=== PATIENT | female | born 1975 ===

== ENCOUNTER 2023-06-15 20:49 | Inpatient (IN) | payer OTHER, SELFPAY ==
[2023-06-15 23:38] VITALS: BMI 40.0
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
[2023-06-16 09:20] LABS: Estimated Average Glucose 134 mg/dL; Hemoglobin A1c % 6.3 % (<6.0)
[2023-06-16 09:23] LABS: Alanine Aminotransferase 18 U/L (0-31); Albumin Level 4.5 g/dL (3.5-5.0); Alkaline Phosphatase 101 U/L (39-117); Anion Gap 17 (12-20); Aspartate Amino Transferase 18 U/L (5-31); Bilirubin Total 0.5 mg/dL (0.0-1.0); Blood Urea Nitrogen 17 mg/dL (9-16); Calcium 10.5 mg/dL (8.4-10.2); Carbon Dioxide 23 mmol/L (22-29); Chloride 103 mmol/L (96-108); Cholesterol 199 mg/dL (<200); Creatinine Clr Calc Pharmacy 102.3; Estimated Glomerular Filt Rate > 60; Glucose Fasting 124 mg/dL (60-99); HDL Cholesterol 36 mg/dL (>40); LDL Cholesterol Calculated 132 mg/dL (<100); Potassium 4.4 mmol/L (3.3-5.1); Sodium 139 mmol/L (135-145); Total Protein 8.9 g/dL (6.5-8.0); Triglycerides 156 mg/dL (<150)
[2023-06-16 09:37] LABS: Thyroid Stimulating Hormone 2.11 uIU/mL (0.32-4.0)
[2023-06-16 09:39] LABS: Vitamin B12 1429 pg/mL (200-900)
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
[2023-06-16 16:55] VITALS: BP 110/67; PULSE 101; RESP 16; TEMP 37; O2SAT 94
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
[2023-06-16] MEDS: OLANZapine 10 MG TABLET PO (21:35)
[2023-06-16] MEDS: traZODone HCL 50 MG TABLET PO (21:35)
[2023-06-17 08:05] VITALS: BP 120/79; PULSE 80; RESP 16; TEMP 2.5; TEMP 36.5; O2SAT 95
[2023-06-17] MEDS: FLUoxetine HCl 20 MG CAPSULE PO (08:53)
[2023-06-17] MEDS: metFORMIN HCl 500 MG TABLET PO (08:53)
--- NOTE | 2023-06-17 10:53 | HO.PSYCHPN ---
Subjective Subjective Date of Service: 06/17/23 Reason For Visit: Crisis Subjective Notes: Conditional Voluntary Healthcare Proxy: No Guardianship: No Medical Problems Affecting Mental Status: No Interim History: Pt seen, reviewed in team. Denies SI/HI Appears guarded at times, possibly overwhelmed with the new environment. Medication Compliance: Yes Side effects from medications: No Attending Groups: No Review of Systems Acute medical concerns: No Medical Review of Systems: unchanged Review of Systems Review of Systems Yes all other systems are reviewed and are negative Mental Status Exam Mental Status Exam Patient Appearance: Appropriate Patient Orientation: Person, Place and Situation Level of Consciousness: Alert Patient Behavior: Talkative and Good Eye Contact Mood Description: Flat Affect Description: Flat Patient Cognition Impaired: No Ability to Follow Directions: Fair Speech Pattern: Spontaneous Speech Memory Description: Episodic Impaired Hallucinations: None Thought Process: Rumination Thought Content: positive for Perseveration and positive for Suicidal Ideation Depressive Symptoms: Low Self Esteem Judgement: Fair Diagnostics Vital Signs (24Hr): Vital Signs - 24 hr 06/16/23 16:55 Temperature 98.6 F Pulse Rate 101 H Respiratory Rate 16 Blood Pressure 110/67 Pulse Oximetry 94 Oxygen Delivery Method Room Air BMI result Body Mass Index 40.0 Labs 06/16/23 08:38 Labs: Laboratory Results - last 48 hr 06/16/23 08:38 Sodium 139 Potassium 4.4 Chloride 103 Carbon Dioxide 23 Anion Gap 17 BUN 17 H Creatinine 0.84 Estim Creat Clear Calc 102.3 Estimated GFR > 60 Fasting Glucose 124 H Estimat Average Glucose 134 Hemoglobin A1c % 6.3 H Calcium 10.5 H Total Bilirubin 0.5 AST 18 ALT 18 Alkaline Phosphatase 101 Total Protein 8.9 H Albumin 4.5 Triglycerides 156 H Cholesterol 199 LDL Cholesterol, Calc 132 H HDL Cholesterol 36 L Vitamin B12 1429 H TSH 2.11 Medications Medications Current Medications Acetaminophen (Acetaminophen 325 Mg Tablet) 650 mg PO Q6H PRN PRN Reason: Headache/Pain Mild Scale (1-3) Al Hydroxide/Mg Hydroxide (Magnesium Hydrox/Alum Hydrox 30 Ml Oral.Susp) 30 ml PO Q6H PRN PRN Reason: Heartburn/Nausea Fluoxetine HCl (Fluoxetine Hcl 20 Mg Capsule) 20 mg PO DAILY [facility] Last Admin: 06/17/23 08:53 Dose: 20 mg Hydroxyzine HCl (Hydroxyzine Hcl 25 Mg Tablet) 25 mg PO Q8H PRN PRN Reason: Anxiety Magnesium Hydroxide (Milk Of Magnesia 30 Ml Oral.Susp) 30 ml PO DAILY PRN PRN Reason: Constipation Metformin HCl (Metformin Hcl 500 Mg Tablet) 500 mg PO DAILY [facility] Last Admin: 06/17/23 08:53 Dose: 500 mg Olanzapine (Olanzapine 10 Mg Tablet) 10 mg PO BEDTIME [facility] Last Admin: 06/16/23 21:35 Dose: 10 mg Trazodone HCl (Trazodone Hcl 50 Mg Tablet) 50 mg PO BEDTIME [facility] Last Admin: 06/16/23 21:35 Dose: 50 mg Allergies Allergies Allergy/AdvReac Type Severity Reaction Status Date / Time No Known Allergies Allergy Verified 06/15/23 23:31 Assessment & Plan Assessment & Plan (1) Bipolar disorder with psychotic features: Status: Acute Code(s): F31.9 - Bipolar disorder, unspecified Plan 48 yo female, hx of bipolar disorder with psychosis, admitted after an argument with partner where pt expressed HI, SI. Plan: Re-establish meds: Prozac 20 mg daily Zyprexa 10 mg HS Hydroxyzine 25 mg tid prn Trazodone 50 mg hs Metformin 500 mg am. 06/17/23 Continue current regime. Continue to monitor for symptoms. Reason for continued inpatient stay Substantial Risk for: harm to self and rapid decompensation Time Spent With Patient Time: Total time managing care of this patient today ____ minutes.
[2023-06-17 18:00] VITALS: BP 125/67; PULSE 91; RESP 16; TEMP 36.1; O2SAT 97
[2023-06-17] MEDS: OLANZapine 10 MG TABLET PO (20:40)
[2023-06-17] MEDS: traZODone HCL 50 MG TABLET PO (20:40)
[2023-06-18 08:41] VITALS: BP 116/77; PULSE 96; RESP 12; TEMP 36.6; O2SAT 96
[2023-06-18] MEDS: FLUoxetine HCl 20 MG CAPSULE PO (08:44)
[2023-06-18] MEDS: metFORMIN HCl 500 MG TABLET PO (08:44)
--- NOTE | 2023-06-18 13:39 | P.PNPSI_ITS ---
Subjective Subjective Date of Service: 06/18/23 Reason For Visit: Crisis Subjective Notes: Conditional Voluntary Interim History: Reviewed with . used electromechanical equipment tester services. social service technician (Cece) present. Pt reports feeling okay today; pt stated, I don't need anything. I haven't felt suicidal in a few days . calm, cooperative. denies SI/HI/VH/AH. Medication Compliance: Yes Side effects from medications: No Attending Groups: No Review of Systems Constitutional: Reports as per HPI Eyes: Reports as per HPI Reports as per HPI Cardiovascular: Reports as per HPI Respiratory: Reports as per HPI Gastrointestinal: Reports as per HPI Genitourinary: Reports as per HPI Musculoskeletal: Reports as per HPI Skin/Breast: Reports as per HPI Reports as per HPI Psychiatric: Reports as per HPI Endocrine: Reports as per HPI Hematologic/Lymphatic: Reports as per HPI Allergic/Immunologic: Reports as per HPI Mental Status Exam Mental Status Exam Patient Appearance: Well Grooomed Patient Orientation: Person, Place, Time and Situation Level of Consciousness: Awake and Alert Patient Behavior: Cooperative Mood Description: Calm Speech Pattern: Clear Hallucinations: None Delusions: Not Present Thought Process: Intact Thought Content: positive for Intact Diagnostics Vital Signs (24Hr): Vital Signs - 24 hr 06/17/23 18:00 06/18/23 08:41 Temperature 97 F 97.8 F Pulse Rate 91 96 Respiratory Rate 16 12 Blood Pressure 125/67 116/77 Pulse Oximetry 97 96 Oxygen Delivery Method Room Air Room Air BMI result Body Mass Index 40.0 Labs 06/16/23 08:38 Medications Medications Current Medications Acetaminophen (Acetaminophen 325 Mg Tablet) 650 mg PO Q6H PRN PRN Reason: Headache/Pain Mild Scale (1-3) Al Hydroxide/Mg Hydroxide (Magnesium Hydrox/Alum Hydrox 30 Ml Oral.Susp) 30 ml PO Q6H PRN PRN Reason: Heartburn/Nausea Fluoxetine HCl (Fluoxetine Hcl 20 Mg Capsule) 20 mg PO DAILY [facility] Last Admin: 06/18/23 08:44 Dose: 20 mg Hydroxyzine HCl (Hydroxyzine Hcl 25 Mg Tablet) 25 mg PO Q8H PRN PRN Reason: Anxiety Magnesium Hydroxide (Milk Of Magnesia 30 Ml Oral.Susp) 30 ml PO DAILY PRN PRN Reason: Constipation Metformin HCl (Metformin Hcl 500 Mg Tablet) 500 mg PO DAILY [facility] Last Admin: 01/12/24 08:44 Dose: 500 mg Olanzapine (Olanzapine 10 Mg Tablet) 10 mg PO BEDTIME [facility] Last Admin: 06/17/23 20:40 Dose: 10 mg Trazodone HCl (Trazodone Hcl 50 Mg Tablet) 50 mg PO BEDTIME [facility] Last Admin: 06/17/23 20:40 Dose: 50 mg Allergies Allergies Allergy/AdvReac Type Severity Reaction Status Date / Time No Known Allergies Allergy Verified 06/15/23 23:31 Assessment & Plan Assessment & Plan (1) Bipolar disorder with psychotic features: Status: Acute Code(s): F31.9 - Bipolar disorder, unspecified Plan 48 yo female, hx of bipolar disorder with psychosis, admitted after an argument with partner where pt expressed HI, SI. Plan: Re-establish meds: Prozac 20 mg daily Zyprexa 10 mg HS Hydroxyzine 25 mg tid prn Trazodone 50 mg hs Metformin 500 mg am. 06/17/23 Continue current regime. Continue to monitor for symptoms. 06/18: used electromechanical equipment tester services. social service technician (Cece) present. Pt reports feeling okay today; pt stated, I don't need anything. I haven't felt suicidal in a few days . calm, cooperative. denies SI/HI/VH/AH. continue current tx plan. Reason for continued inpatient stay Substantial Risk for: med/psych decompensation Time Spent With Patient Time: Total time managing care of this patient today ____ minutes.
--- NOTE | 2023-06-18 13:44 | PC.NURSE ---
Left messages for bandage wrapping machine operator services for [facility] bandage wrapping machine operator for groups. Awaiting return call.
[2023-06-18 21:00] VITALS: BP 120/66; PULSE 88; RESP 16; TEMP 36.6; O2SAT 97
[2023-06-18] MEDS: traZODone HCL 50 MG TABLET PO (21:00)
[2023-06-18] MEDS: OLANZapine 10 MG TABLET PO (21:00)
[2023-06-19 08:00] VITALS: BP 116/71; PULSE 90; RESP 18; TEMP 36.3; O2SAT 96
[2023-06-19] MEDS: FLUoxetine HCl 20 MG CAPSULE PO (08:38)
[2023-06-19] MEDS: metFORMIN HCl 500 MG TABLET PO (08:38)
--- NOTE | 2023-06-19 10:31 | HO.PSYCHPN ---
Subjective Subjective Date of Service: 06/19/23 Reason For Visit: Crisis Subjective Notes: Conditional Voluntary Interim History: Patient was seen and discussed in rounds today. Records and plans were reviewed. Noteman service was not located. The report state that she continues to be guarded. She is medication and meal compliant. She is visible, cooperative and pleasant. No changes were made today Review of Systems Review of Systems Yes all other systems are reviewed and are negative Mental Status Exam Mental Status Exam Narrative: Could not be assessed formally. Appears to be stable and in fair spirits. No dangerous behaviors. Diagnostics Vital Signs (24Hr): Vital Signs - 24 hr 06/18/23 21:00 06/19/23 08:00 Temperature 97.8 F 97.3 F Pulse Rate 88 90 Respiratory Rate 16 18 Blood Pressure 120/66 116/71 Pulse Oximetry 97 96 Oxygen Delivery Method Room Air Room Air BMI result Body Mass Index 40.0 Labs 06/16/23 08:38 Medications Medications Current Medications Acetaminophen (Acetaminophen 325 Mg Tablet) 650 mg PO Q6H PRN PRN Reason: Headache/Pain Mild Scale (1-3) Al Hydroxide/Mg Hydroxide (Magnesium Hydrox/Alum Hydrox 30 Ml Oral.Susp) 30 ml PO Q6H PRN PRN Reason: Heartburn/Nausea Fluoxetine HCl (Fluoxetine Hcl 20 Mg Capsule) 20 mg PO DAILY [facility] Last Admin: 06/19/23 08:38 Dose: 20 mg Hydroxyzine HCl (Hydroxyzine Hcl 25 Mg Tablet) 25 mg PO Q8H PRN PRN Reason: Anxiety Magnesium Hydroxide (Milk Of Magnesia 30 Ml Oral.Susp) 30 ml PO DAILY PRN PRN Reason: Constipation Metformin HCl (Metformin Hcl 500 Mg Tablet) 500 mg PO DAILY [facility] Last Admin: 06/19/23 08:38 Dose: 500 mg Olanzapine (Olanzapine 10 Mg Tablet) 10 mg PO BEDTIME [facility] Last Admin: 06/18/23 21:00 Dose: 10 mg Trazodone HCl (Trazodone Hcl 50 Mg Tablet) 50 mg PO BEDTIME [facility] Last Admin: 06/18/23 21:00 Dose: 50 mg Allergies Allergies Allergy/AdvReac Type Severity Reaction Status Date / Time No Known Allergies Allergy Verified 06/15/23 23:31 Assessment & Plan Assessment & Plan (1) Bipolar disorder with psychotic features: Status: Acute Code(s): F31.9 - Bipolar disorder, unspecified Plan 48 yo female, hx of bipolar disorder with psychosis, admitted after an argument with partner where pt expressed HI, SI. Plan: Re-establish meds: Prozac 20 mg daily Zyprexa 10 mg HS Hydroxyzine 25 mg tid prn Trazodone 50 mg hs Metformin 500 mg am. 06/17/23 Continue current regime. Continue to monitor for symptoms. 06/18: used artificial limb maker services. social work case manager (Cece) present. Pt reports feeling okay today; pt stated, I don't need anything. I haven't felt suicidal in a few days . calm, cooperative. denies SI/HI/VH/AH. continue current tx plan. 06/19/23: Continue current regimen and plans Reason for continued inpatient stay Substantial Risk for: med/psych decompensation Time Spent With Patient Time: Total time managing care of this patient today ____ minutes.
[2023-06-19] MEDS: OLANZapine 10 MG TABLET PO (20:35)
[2023-06-19] MEDS: traZODone HCL 50 MG TABLET PO (20:35)
[2023-06-19 22:31] VITALS: BP 113/71; PULSE 88; RESP 16; TEMP 36.4; O2SAT 96
[2023-06-20 08:00] VITALS: BP 137/84; PULSE 88; TEMP 36.3; O2SAT 97
[2023-06-20] MEDS: FLUoxetine HCl 20 MG CAPSULE PO (09:58)
[2023-06-20] MEDS: metFORMIN HCl 500 MG TABLET PO (09:58)
--- NOTE | 2023-06-20 10:06 | HO.PSYCHPN ---
Subjective Subjective Date of Service: 06/20/23 Reason For Visit: Crisis Subjective Notes: Conditional Voluntary Interim History: Patient was seen and discussed in rounds today. Records and plans were reviewed. An correctional sergeant was used today with the nurse present. She has been stable and is doing better. She is calm, cooperative and compliant. Eating and sleeping adequately. She is out and visible and communication makes it difficult. No complaints or side effects. No changes were made today Review of Systems Review of Systems Yes all other systems are reviewed and are negative Mental Status Exam Mental Status Exam Narrative: In today's visit she is alert, oriented and pleasant. Normal speech. Moderate eye contact. Affect is constricted. No SI. Cognitively is grossly intact. Judgment is intact Diagnostics Vital Signs (24Hr): Vital Signs - 24 hr 06/19/23 22:31 06/20/23 08:00 Temperature 97.6 F 97.4 F Pulse Rate 88 88 Respiratory Rate 16 Blood Pressure 113/71 137/84 Pulse Oximetry 96 97 Oxygen Delivery Method Room Air Room Air BMI result Body Mass Index 40.0 Labs 06/16/23 08:38 Medications Medications Current Medications Acetaminophen (Acetaminophen 325 Mg Tablet) 650 mg PO Q6H PRN PRN Reason: Headache/Pain Mild Scale (1-3) Al Hydroxide/Mg Hydroxide (Magnesium Hydrox/Alum Hydrox 30 Ml Oral.Susp) 30 ml PO Q6H PRN PRN Reason: Heartburn/Nausea Fluoxetine HCl (Fluoxetine Hcl 20 Mg Capsule) 20 mg PO DAILY [facility] Last Admin: 06/20/23 09:58 Dose: 20 mg Hydroxyzine HCl (Hydroxyzine Hcl 25 Mg Tablet) 25 mg PO Q8H PRN PRN Reason: Anxiety Magnesium Hydroxide (Milk Of Magnesia 30 Ml Oral.Susp) 30 ml PO DAILY PRN PRN Reason: Constipation Metformin HCl (Metformin Hcl 500 Mg Tablet) 500 mg PO DAILY [facility] Last Admin: 06/20/23 09:58 Dose: 500 mg Olanzapine (Olanzapine 10 Mg Tablet) 10 mg PO BEDTIME [facility] Last Admin: 06/19/23 20:35 Dose: 10 mg Trazodone HCl (Trazodone Hcl 50 Mg Tablet) 50 mg PO BEDTIME [facility] Last Admin: 06/19/23 20:35 Dose: 50 mg Allergies Allergies Allergy/AdvReac Type Severity Reaction Status Date / Time No Known Allergies Allergy Verified 06/15/23 23:31 Assessment & Plan Assessment & Plan (1) Bipolar disorder with psychotic features: Status: Acute Code(s): F31.9 - Bipolar disorder, unspecified Plan 48 yo female, hx of bipolar disorder with psychosis, admitted after an argument with partner where pt expressed HI, SI. Plan: Re-establish meds: Prozac 20 mg daily Zyprexa 10 mg HS Hydroxyzine 25 mg tid prn Trazodone 50 mg hs Metformin 500 mg am. 06/17/23 Continue current regime. Continue to monitor for symptoms. 06/18: used correctional sergeant services. social work administrator (Cece) present. Pt reports feeling okay today; pt stated, I don't need anything. I haven't felt suicidal in a few days . calm, cooperative. denies SI/HI/VH/AH. continue current tx plan. 06/19/23: Continue current regimen and plans 06/20/2023: Continue current regimen and plans Reason for continued inpatient stay Substantial Risk for: med/psych decompensation Time Spent With Patient Time: Total time managing care of this patient today ____ minutes.
[2023-06-20 18:00] VITALS: BP 136/86; PULSE 88; RESP 18; TEMP 36.1; O2SAT 95
[2023-06-20] MEDS: OLANZapine 10 MG TABLET PO (21:24)
[2023-06-20] MEDS: traZODone HCL 50 MG TABLET PO (21:24)
[2023-06-21 09:03] VITALS: BP 119/71; PULSE 86; RESP 18; TEMP 36.3; O2SAT 96
[2023-06-21] MEDS: metFORMIN HCl 500 MG TABLET PO (09:05)
[2023-06-21] MEDS: FLUoxetine HCl 20 MG CAPSULE PO (09:05)
--- NOTE | 2023-06-21 12:10 | P.PNPSI_ITS ---
Subjective Subjective Date of Service: 06/21/23 Reason For Visit: Crisis Subjective Notes: Conditional Voluntary Healthcare Proxy: No Guardianship: No Medical Problems Affecting Mental Status: No Interim History: Met with pt, Rebecca Franco RN, Cece Verma LCSW, and ward aide via computer. Pt reports no current sx. Discussed having a family meeting prior to discharge to make sure going home will be a reasonable option. Pt agrees. Medication Compliance: Yes Side effects from medications: No Attending Groups: Intermittent Review of Systems Acute medical concerns: No Medical Review of Systems: unchanged Review of Systems Review of Systems Yes all other systems are reviewed and are negative Mental Status Exam Mental Status Exam Patient Appearance: Appropriate Patient Orientation: Person, Place and Situation Level of Consciousness: Alert Patient Behavior: Talkative and Good Eye Contact Mood Description: Flat Affect Description: Flat Patient Cognition Impaired: No Ability to Follow Directions: Fair Speech Pattern: Spontaneous Speech Memory Description: Episodic Impaired Hallucinations: None Thought Process: Intact Thought Content: positive for Intact Depressive Symptoms: Low Self Esteem Judgement: Good Diagnostics Vital Signs (24Hr): Vital Signs - 24 hr 06/20/23 18:00 06/21/23 09:03 Temperature 97 F 97.4 F Pulse Rate 88 86 Respiratory Rate 18 18 Blood Pressure 136/86 119/71 Pulse Oximetry 95 96 Oxygen Delivery Method Room Air Room Air BMI result Body Mass Index 40.0 Labs 06/16/23 08:38 Medications Medications Current Medications Acetaminophen (Acetaminophen 325 Mg Tablet) 650 mg PO Q6H PRN PRN Reason: Headache/Pain Mild Scale (1-3) Al Hydroxide/Mg Hydroxide (Magnesium Hydrox/Alum Hydrox 30 Ml Oral.Susp) 30 ml PO Q6H PRN PRN Reason: Heartburn/Nausea Fluoxetine HCl (Fluoxetine Hcl 20 Mg Capsule) 20 mg PO DAILY [facility] Last Admin: 06/21/23 09:05 Dose: 20 mg Hydroxyzine HCl (Hydroxyzine Hcl 25 Mg Tablet) 25 mg PO Q8H PRN PRN Reason: Anxiety Magnesium Hydroxide (Milk Of Magnesia 30 Ml Oral.Susp) 30 ml PO DAILY PRN PRN Reason: Constipation Metformin HCl (Metformin Hcl 500 Mg Tablet) 500 mg PO DAILY [facility] Last Admin: 06/21/23 09:05 Dose: 500 mg Olanzapine (Olanzapine 10 Mg Tablet) 10 mg PO BEDTIME [facility] Last Admin: 06/20/23 21:24 Dose: 10 mg Trazodone HCl (Trazodone Hcl 50 Mg Tablet) 50 mg PO BEDTIME [facility] Last Admin: 06/20/23 21:24 Dose: 50 mg Allergies Allergies Allergy/AdvReac Type Severity Reaction Status Date / Time No Known Allergies Allergy Verified 06/15/23 23:31 Assessment & Plan Assessment & Plan (1) Bipolar disorder with psychotic features: Status: Acute Code(s): F31.9 - Bipolar disorder, unspecified Plan 48 yo female, hx of bipolar disorder with psychosis, admitted after an argument with partner where pt expressed HI, SI. Plan: Re-establish meds: Prozac 20 mg daily Zyprexa 10 mg HS Hydroxyzine 25 mg tid prn Trazodone 50 mg hs Metformin 500 mg am. 06/17/23 Continue current regime. Continue to monitor for symptoms. 06/18: used ward aide services. secondary social studies teacher (Cece) present. Pt reports feeling okay today; pt stated, I don't need anything. I haven't felt suicidal in a few days . calm, cooperative. denies SI/HI/VH/AH. continue current tx plan. 06/19/23: Continue current regimen and plans 06/20/2023: Continue current regimen and plans 06/21/23: Continue current regime and plan of care. Patient educated on: therapeutic strategies Informed Consent: understands Reason for continued inpatient stay Substantial Risk for: rapid decompensation Time Spent With Patient Time: Total time managing care of this patient today ____ minutes.
[2023-06-21 19:30] VITALS: BP 133/87; PULSE 94; TEMP 36.9; O2SAT 95
[2023-06-21] MEDS: hydrOXYzine HCL 25 MG TABLET PO (19:42)
[2023-06-21] MEDS: traZODone HCL 50 MG TABLET PO (19:43)
[2023-06-21] MEDS: OLANZapine 10 MG TABLET PO (19:43)
[2023-06-22 08:00] VITALS: BP 135/80; PULSE 77; RESP 18; TEMP 36.4; O2SAT 97
[2023-06-22] MEDS: FLUoxetine HCl 20 MG CAPSULE PO (08:55)
[2023-06-22] MEDS: metFORMIN HCl 500 MG TABLET PO (08:55)
--- NOTE | 2023-06-22 15:56 | PC.NURSE ---
Daughter's phone number [facility] : [phone]
[2023-06-22 19:55] VITALS: BP 107/66; PULSE 93; RESP 16; TEMP 36.4; O2SAT 95
[2023-06-22] MEDS: traZODone HCL 50 MG TABLET PO (19:56)
--- NOTE | 2023-06-22 19:56 | P.PNPSI_ITS ---
Subjective Subjective Date of Service: 06/22/23 Reason For Visit: Crisis Subjective Notes: Conditional Voluntary Healthcare Proxy: No Guardianship: No Medical Problems Affecting Mental Status: No Interim History: Pt denies psych symptoms. She reports no med SE, effective regime Family meeting TBS to review precipitants and problem solving prior to discharge as pt has reported feeling unheard at home when issues arise. Medication Compliance: Yes Side effects from medications: No Attending Groups: Intermittent Review of Systems Acute medical concerns: No Medical Review of Systems: unchanged Review of Systems Review of Systems Yes all other systems are reviewed and are negative Mental Status Exam Mental Status Exam Patient Appearance: Appropriate Patient Orientation: Person, Place and Situation Level of Consciousness: Alert Patient Behavior: Talkative and Good Eye Contact Mood Description: Flat Affect Description: Flat Patient Cognition Impaired: No Ability to Follow Directions: Fair Speech Pattern: Spontaneous Speech Memory Description: Episodic Impaired Hallucinations: None Thought Process: Intact Thought Content: positive for Intact Depressive Symptoms: Low Self Esteem Judgement: Good Diagnostics Vital Signs (24Hr): Vital Signs - 24 hr 06/22/23 08:00 06/22/23 19:55 Temperature 97.5 F 97.5 F Pulse Rate 77 93 Respiratory Rate 18 16 Blood Pressure 135/80 107/66 Pulse Oximetry 97 95 Oxygen Delivery Method Room Air Room Air BMI result Body Mass Index 40.0 Labs 06/23/23 10:14 Medications Medications Current Medications Acetaminophen (Acetaminophen 325 Mg Tablet) 650 mg PO Q6H PRN PRN Reason: Headache/Pain Mild Scale (1-3) Al Hydroxide/Mg Hydroxide (Magnesium Hydrox/Alum Hydrox 30 Ml Oral.Susp) 30 ml PO Q6H PRN PRN Reason: Heartburn/Nausea Fluoxetine HCl (Fluoxetine Hcl 20 Mg Capsule) 20 mg PO DAILY [facility] Last Admin: 06/22/23 08:55 Dose: 20 mg Hydroxyzine HCl (Hydroxyzine Hcl 25 Mg Tablet) 25 mg PO Q8H PRN PRN Reason: Anxiety Last Admin: 06/21/23 19:42 Dose: 25 mg Magnesium Hydroxide (Milk Of Magnesia 30 Ml Oral.Susp) 30 ml PO DAILY PRN PRN Reason: Constipation Metformin HCl (Metformin Hcl 500 Mg Tablet) 500 mg PO DAILY [facility] Last Admin: 06/22/23 08:55 Dose: 500 mg Olanzapine (Olanzapine 10 Mg Tablet) 10 mg PO BEDTIME [facility] Last Admin: 06/21/23 19:43 Dose: 10 mg Trazodone HCl (Trazodone Hcl 50 Mg Tablet) 50 mg PO BEDTIME [facility] Last Admin: 06/21/23 19:43 Dose: 50 mg Allergies Allergies Allergy/AdvReac Type Severity Reaction Status Date / Time No Known Allergies Allergy Verified 06/15/23 23:31 Assessment & Plan Assessment & Plan (1) Bipolar disorder with psychotic features: Status: Acute Code(s): F31.9 - Bipolar disorder, unspecified Plan 48 yo female, hx of bipolar disorder with psychosis, admitted after an argument with partner where pt expressed HI, SI. Plan: Re-establish meds: Prozac 20 mg daily Zyprexa 10 mg HS Hydroxyzine 25 mg tid prn Trazodone 50 mg hs Metformin 500 mg am. 06/17/23 Continue current regime. Continue to monitor for symptoms. 06/18: used hoisting machine operator services. clinical social work aide (Cece) present. Pt reports feeling okay today; pt stated, I don't need anything. I haven't felt suicidal in a few days . calm, cooperative. denies SI/HI/VH/AH. continue current tx plan. 06/19/23: Continue current regimen and plans 06/20/2023: Continue current regimen and plans 06/21/23: Continue current regime and plan of care. 06/22/23: Continue tx Patient educated on: medication risk/benefits and therapeutic strategies Informed Consent: understands Reason for continued inpatient stay Substantial Risk for: rapid decompensation Time Spent With Patient Time: Total time managing care of this patient today ____ minutes.
[2023-06-22] MEDS: OLANZapine 10 MG TABLET PO (19:57)
[2023-06-23 07:53] VITALS: BP 135/73; PULSE 96; RESP 18; TEMP 36; O2SAT 96
[2023-06-23] MEDS: metFORMIN HCl 500 MG TABLET PO (08:34)
[2023-06-23] MEDS: FLUoxetine HCl 20 MG CAPSULE PO (08:35)
[2023-06-23 10:58] LABS: Creatinine Clr Calc Pharmacy 85.2; Estimated Glomerular Filt Rate > 60
--- NOTE | 2023-06-23 13:02 | HO.PSYCHPN ---
Subjective Subjective Date of Service: 06/23/23 Reason For Visit: Crisis Subjective Notes: Conditional Voluntary Healthcare Proxy: No Guardianship: No Medical Problems Affecting Mental Status: No Interim History: Pt reports feeling well. She has a spontaneous smile, laughter and tells team that she at times feels like she is in a dream. She denies med SE. She is not attentive to ADL's today. Isolative, probably due to language barrier, although she enjoys computer historic interpreter she reports and engages well when it is used today. Feels she is treated well on the unit and expresses gratitude. Medication Compliance: Yes Side effects from medications: No Attending Groups: Intermittent Review of Systems Acute medical concerns: No Medical Review of Systems: unchanged Review of Systems Review of Systems Yes all other systems are reviewed and are negative Mental Status Exam Mental Status Exam Patient Appearance: Appropriate Patient Orientation: Person, Place and Situation Level of Consciousness: Alert Patient Behavior: Talkative and Good Eye Contact Mood Description: Flat Affect Description: Flat Patient Cognition Impaired: No Ability to Follow Directions: Fair Speech Pattern: Spontaneous Speech Memory Description: Episodic Impaired Hallucinations: None Thought Process: Intact Thought Content: positive for Intact Depressive Symptoms: Low Self Esteem Judgement: Good Diagnostics Vital Signs (24Hr): Vital Signs - 24 hr 06/22/23 19:55 06/23/23 07:53 Temperature 97.5 F 96.8 F Pulse Rate 93 96 Respiratory Rate 16 18 Blood Pressure 107/66 135/73 Pulse Oximetry 95 96 Oxygen Delivery Method Room Air Room Air BMI result Body Mass Index 40.0 Labs 06/23/23 10:14 Labs: Laboratory Results - last 48 hr 06/23/23 10:14 Creatinine 0.83 Estim Creat Clear Calc 85.2 Estimated GFR > 60 Medications Medications Current Medications Acetaminophen (Acetaminophen 325 Mg Tablet) 650 mg PO Q6H PRN PRN Reason: Headache/Pain Mild Scale (1-3) Al Hydroxide/Mg Hydroxide (Magnesium Hydrox/Alum Hydrox 30 Ml Oral.Susp) 30 ml PO Q6H PRN PRN Reason: Heartburn/Nausea Fluoxetine HCl (Fluoxetine Hcl 20 Mg Capsule) 20 mg PO DAILY [facility] Last Admin: 06/23/23 08:35 Dose: 20 mg Hydroxyzine HCl (Hydroxyzine Hcl 25 Mg Tablet) 25 mg PO Q8H PRN PRN Reason: Anxiety Last Admin: 06/21/23 19:42 Dose: 25 mg Magnesium Hydroxide (Milk Of Magnesia 30 Ml Oral.Susp) 30 ml PO DAILY PRN PRN Reason: Constipation Metformin HCl (Metformin Hcl 500 Mg Tablet) 500 mg PO DAILY [facility] Last Admin: 06/23/23 08:34 Dose: 500 mg Olanzapine (Olanzapine 10 Mg Tablet) 10 mg PO BEDTIME [facility] Last Admin: 06/22/23 19:57 Dose: 10 mg Trazodone HCl (Trazodone Hcl 50 Mg Tablet) 50 mg PO BEDTIME [facility] Last Admin: 06/22/23 19:56 Dose: 50 mg Allergies Allergies Allergy/AdvReac Type Severity Reaction Status Date / Time No Known Allergies Allergy Verified 06/15/23 23:31 Assessment & Plan Assessment & Plan (1) Bipolar disorder with psychotic features: Status: Acute Code(s): F31.9 - Bipolar disorder, unspecified Plan 48 yo female, hx of bipolar disorder with psychosis, admitted after an argument with partner where pt expressed HI, SI. Plan: Re-establish meds: Prozac 20 mg daily Zyprexa 10 mg HS Hydroxyzine 25 mg tid prn Trazodone 50 mg hs Metformin 500 mg am. 06/17/23 Continue current regime. Continue to monitor for symptoms. 06/18: used historic interpreter services. healthcare social worker (Cece) present. Pt reports feeling okay today; pt stated, I don't need anything. I haven't felt suicidal in a few days . calm, cooperative. denies SI/HI/VH/AH. continue current tx plan. 06/19/23: Continue current regimen and plans 06/20/2023: Continue current regimen and plans 06/21/23: Continue current regime and plan of care. 06/23/23 Continue tx Patient educated on: therapeutic strategies Informed Consent: understands and further education needed Reason for continued inpatient stay Substantial Risk for: rapid decompensation Time Spent With Patient Time: Total time managing care of this patient today ____ minutes.
[2023-06-23 19:40] VITALS: BP 130/72; PULSE 95; RESP 16; TEMP 36.3; O2SAT 98
[2023-06-23] MEDS: OLANZapine 10 MG TABLET PO (20:25)
[2023-06-23] MEDS: traZODone HCL 50 MG TABLET PO (20:25)
[2023-06-24 08:20] VITALS: BP 120/75; PULSE 80; RESP 18; TEMP 36.4; O2SAT 97
[2023-06-24] MEDS: metFORMIN HCl 500 MG TABLET PO (08:45)
[2023-06-24] MEDS: FLUoxetine HCl 20 MG CAPSULE PO (08:45)
--- NOTE | 2023-06-24 10:15 | P.PNPSI_ITS ---
Subjective Subjective Date of Service: 06/24/23 Reason For Visit: Crisis Interim History: met with patient; discussed with team health technical writer attended a family meeting with pt, her daughter, (virtually present) and his other partner. Discussed how to make the complex relationships work better; discussed how patient will navigate her own stress...so she calm down her own emotions and diminish urge to self harm when triggered. Discussed medications and how PRozac has helped but perhaps at higher dose, it may help further reduce anxiety/depression/urges to self harm (pt has only ever had thoughts/urges but no hx of actual self-harm); she wants Prozac to increase and discussed med side-effects. Pt is concerned about weight gain; she does not know why she was started on Zyprexa. Through more discussion, realized that patient only takes meds intermittently, maybe 3x a week, thus all agreed it's premature to increase the dose. Mental Status Exam Mental Status Exam Patient Appearance: Appropriate Patient Orientation: Person, Place and Situation Level of Consciousness: Alert Patient Behavior: Talkative and Good Eye Contact Mood Description: Flat Affect Description: Flat Patient Cognition Impaired: No Ability to Follow Directions: Fair Speech Pattern: Spontaneous Speech Memory Description: Episodic Impaired Hallucinations: None Thought Process: Intact Thought Content: positive for Intact Depressive Symptoms: Low Self Esteem Judgement: Good Diagnostics Vital Signs (24Hr): Vital Signs - 24 hr 06/23/23 19:40 06/24/23 08:20 Temperature 97.4 F 97.5 F Pulse Rate 95 80 Respiratory Rate 16 18 Blood Pressure 130/72 120/75 Pulse Oximetry 98 97 Oxygen Delivery Method Room Air Room Air BMI result Body Mass Index 40.0 Labs 06/23/23 10:14 Labs: Laboratory Results - last 48 hr 06/23/23 10:14 Creatinine 0.83 Estim Creat Clear Calc 85.2 Estimated GFR > 60 Medications Medications Current Medications Acetaminophen (Acetaminophen 325 Mg Tablet) 650 mg PO Q6H PRN PRN Reason: Headache/Pain Mild Scale (1-3) Al Hydroxide/Mg Hydroxide (Magnesium Hydrox/Alum Hydrox 30 Ml Oral.Susp) 30 ml PO Q6H PRN PRN Reason: Heartburn/Nausea Fluoxetine HCl (Fluoxetine Hcl 20 Mg Capsule) 20 mg PO DAILY [facility] Last Admin: 06/24/23 08:45 Dose: 20 mg Hydroxyzine HCl (Hydroxyzine Hcl 25 Mg Tablet) 25 mg PO Q8H PRN PRN Reason: Anxiety Last Admin: 06/21/23 19:42 Dose: 25 mg Magnesium Hydroxide (Milk Of Magnesia 30 Ml Oral.Susp) 30 ml PO DAILY PRN PRN Reason: Constipation Metformin HCl (Metformin Hcl 500 Mg Tablet) 500 mg PO DAILY [facility] Last Admin: 06/24/23 08:45 Dose: 500 mg Olanzapine (Olanzapine 10 Mg Tablet) 10 mg PO BEDTIME [facility] Last Admin: 06/23/23 20:25 Dose: 10 mg Trazodone HCl (Trazodone Hcl 50 Mg Tablet) 50 mg PO BEDTIME [facility] Last Admin: 06/23/23 20:25 Dose: 50 mg Allergies Allergies Allergy/AdvReac Type Severity Reaction Status Date / Time No Known Allergies Allergy Verified 06/15/23 23:31 Assessment & Plan Assessment & Plan (1) Bipolar disorder with psychotic features: Status: Acute Code(s): F31.9 - Bipolar disorder, unspecified Plan 48 yo female, hx of bipolar disorder with psychosis, admitted after an argument with partner where pt expressed HI, SI. Plan: Re-establish meds: Prozac 20 mg daily Zyprexa 10 mg HS Hydroxyzine 25 mg tid prn Trazodone 50 mg hs Metformin 500 mg am. 06/17/23 Continue current regime. Continue to monitor for symptoms. 06/18: used american sign language interpreter services. aids social worker (Cece) present. Pt reports feeling okay today; pt stated, I don't need anything. I haven't felt suicidal in a few days . calm, cooperative. denies SI/HI/VH/AH. continue current tx plan. 06/19/23: Continue current regimen and plans 06/20/2023: Continue current regimen and plans 06/21/23: Continue current regime and plan of care. 06/23/23 Continue tx 06/24 health technical writer attended a family meeting with pt, her daughter, (virtually present) and his other partner. Discussed how to make the complex relationships; discussed how patient will navigate her own stress... -will leave meds as they are since pt only takes intermittently and thus maybe therapeutic at current doses -pt not sure why on zyprexa, but will leave for now Patient educated on: diagnosis, medication risk/benefits and therapeutic strategies Informed Consent: understands Reason for continued inpatient stay Substantial Risk for: rapid decompensation Time Spent With Patient Time: Total time managing care of this patient today ____ minutes.
[2023-06-24 19:35] VITALS: BP 133/83; PULSE 93; RESP 16; TEMP 36.4; O2SAT 96
[2023-06-24] MEDS: OLANZapine 10 MG TABLET PO (19:45)
[2023-06-24] MEDS: hydrOXYzine HCL 25 MG TABLET PO (19:46)
[2023-06-24] MEDS: traZODone HCL 50 MG TABLET PO (19:46)
[2023-06-25 08:00] VITALS: BP 119/69; PULSE 91; TEMP 36.4; O2SAT 97
[2023-06-25] MEDS: metFORMIN HCl 500 MG TABLET PO (08:30)
[2023-06-25] MEDS: FLUoxetine HCl 20 MG CAPSULE PO (08:30)
--- NOTE | 2023-06-25 15:45 | P.PNPSI_ITS ---
Subjective Subjective Date of Service: 06/25/23 Reason For Visit: Crisis Interim History: Briefly met with patient; discussed with team Patient with brighter affect. Smiles at sign writer hand and says that she is good and thanks sign writer hand. Patient told nursing that she did in the past hold a knife but she will not do it again Mental Status Exam Mental Status Exam Patient Appearance: Appropriate Patient Orientation: Person, Place and Situation Level of Consciousness: Alert Patient Behavior: Appropriate and Good Eye Contact Mood Description: Calm ( good ) Affect Description: Calm and Appropriate Patient Cognition Impaired: No Ability to Follow Directions: Fair Speech Pattern: Spontaneous Speech Memory Description: Episodic Impaired Hallucinations: None Delusions: Not Present Thought Process: Intact and Goal Oriented Thought Content: positive for Intact (No SI/HI) Depressive Symptoms: Low Self Esteem Judgement: Fair Diagnostics Vital Signs (24Hr): Vital Signs - 24 hr 06/24/23 19:35 06/25/23 08:00 Temperature 97.5 F 97.5 F Pulse Rate 93 91 Respiratory Rate 16 Blood Pressure 133/83 119/69 Pulse Oximetry 96 97 Oxygen Delivery Method Room Air Room Air BMI result Body Mass Index 40.0 Labs 06/23/23 10:14 Medications Medications Current Medications Acetaminophen (Acetaminophen 325 Mg Tablet) 650 mg PO Q6H PRN PRN Reason: Headache/Pain Mild Scale (1-3) Al Hydroxide/Mg Hydroxide (Magnesium Hydrox/Alum Hydrox 30 Ml Oral.Susp) 30 ml PO Q6H PRN PRN Reason: Heartburn/Nausea Fluoxetine HCl (Fluoxetine Hcl 20 Mg Capsule) 20 mg PO DAILY [facility] Last Admin: 06/25/23 08:30 Dose: 20 mg Hydroxyzine HCl (Hydroxyzine Hcl 25 Mg Tablet) 25 mg PO Q8H PRN PRN Reason: Anxiety Last Admin: 06/24/23 19:46 Dose: 25 mg Magnesium Hydroxide (Milk Of Magnesia 30 Ml Oral.Susp) 30 ml PO DAILY PRN PRN Reason: Constipation Metformin HCl (Metformin Hcl 500 Mg Tablet) 500 mg PO DAILY [facility] Last Admin: 06/25/23 08:30 Dose: 500 mg Olanzapine (Olanzapine 10 Mg Tablet) 10 mg PO BEDTIME [facility] Last Admin: 06/24/23 19:45 Dose: 10 mg Trazodone HCl (Trazodone Hcl 50 Mg Tablet) 50 mg PO BEDTIME [facility] Last Admin: 06/24/23 19:46 Dose: 50 mg Allergies Allergies Allergy/AdvReac Type Severity Reaction Status Date / Time No Known Allergies Allergy Verified 06/15/23 23:31 Assessment & Plan Assessment & Plan (1) Bipolar disorder with psychotic features: Status: Acute Code(s): F31.9 - Bipolar disorder, unspecified Plan 48 yo female, hx of bipolar disorder with psychosis, admitted after an argument with partner where pt expressed HI, SI. Plan: Re-establish meds: Prozac 20 mg daily Zyprexa 10 mg HS Hydroxyzine 25 mg tid prn Trazodone 50 mg hs Metformin 500 mg am. 06/17/23 Continue current regime. Continue to monitor for symptoms. 06/18: used gas well pumper services. bilingual social worker (Cece) present. Pt reports feeling okay today; pt stated, I don't need anything. I haven't felt suicidal in a few days . calm, cooperative. denies SI/HI/VH/AH. continue current tx plan. 06/19/23: Continue current regimen and plans 06/20/2023: Continue current regimen and plans 06/21/23: Continue current regime and plan of care. 06/23/23 Continue tx 06/24 sign writer hand attended a family meeting with pt, her daughter, (virtually present) and his other partner. Discussed how to make the complex relationships; discussed how patient will navigate her own stress... -will leave meds as they are since pt only takes intermittently and thus maybe therapeutic at current doses -pt not sure why on zyprexa, but will leave for now 06/25 patient reports she is good and has a noticeably brighter affect; patient in the milieu, attending groups, sitting with peers. Social work working on setting up aftercare including VNA. Plan is for her to discharge early next week Patient educated on: diagnosis Informed Consent: understands Reason for continued inpatient stay Substantial Risk for: rapid decompensation Time Spent With Patient Time: Total time managing care of this patient today ____ minutes.
[2023-06-25 18:00] VITALS: BP 119/73; PULSE 100; RESP 18; TEMP 36.4; O2SAT 100
[2023-06-25] MEDS: traZODone HCL 50 MG TABLET PO (21:04)
[2023-06-25] MEDS: OLANZapine 10 MG TABLET PO (21:04)
[2023-06-26 06:00] VITALS: BP 122/85; PULSE 89; TEMP 36.2; O2SAT 96
[2023-06-26] MEDS: metFORMIN HCl 500 MG TABLET PO (08:38)
[2023-06-26] MEDS: FLUoxetine HCl 20 MG CAPSULE PO (08:38)
--- NOTE | 2023-06-26 10:15 | P.PNPSI_ITS ---
Subjective Subjective Date of Service: 06/26/23 Reason For Visit: Crisis Interim History: met With patient; discussed with team -used [employer] Patient reports that she is Fine.. Everything is fine denies psychiatric symptoms, denies SI; feels good about discharging next week. No complaints and no requests Mental Status Exam Mental Status Exam Patient Appearance: Appropriate Patient Orientation: Person, Place and Situation Level of Consciousness: Alert Patient Behavior: Appropriate and Good Eye Contact Mood Description: Calm ( fine ) Affect Description: Calm and Appropriate Patient Cognition Impaired: No Ability to Follow Directions: Fair Speech Pattern: Spontaneous Speech Memory Description: Episodic Impaired Hallucinations: None Delusions: Not Present Thought Process: Intact and Goal Oriented Thought Content: positive for Intact (No SI/HI) Depressive Symptoms: Low Self Esteem Judgement: Fair Diagnostics Vital Signs (24Hr): Vital Signs - 24 hr 06/25/23 18:00 06/26/23 06:00 Temperature 97.5 F 97.2 F Pulse Rate 100 89 Respiratory Rate 18 Blood Pressure 119/73 122/85 Pulse Oximetry 100 96 Oxygen Delivery Method Room Air Room Air BMI result Body Mass Index 40.0 Labs 06/23/23 10:14 Medications Medications Current Medications Acetaminophen (Acetaminophen 325 Mg Tablet) 650 mg PO Q6H PRN PRN Reason: Headache/Pain Mild Scale (1-3) Al Hydroxide/Mg Hydroxide (Magnesium Hydrox/Alum Hydrox 30 Ml Oral.Susp) 30 ml PO Q6H PRN PRN Reason: Heartburn/Nausea Fluoxetine HCl (Fluoxetine Hcl 20 Mg Capsule) 20 mg PO DAILY [facility] Last Admin: 06/26/23 08:38 Dose: 20 mg Hydroxyzine HCl (Hydroxyzine Hcl 25 Mg Tablet) 25 mg PO Q8H PRN PRN Reason: Anxiety Last Admin: 06/24/23 19:46 Dose: 25 mg Magnesium Hydroxide (Milk Of Magnesia 30 Ml Oral.Susp) 30 ml PO DAILY PRN PRN Reason: Constipation Metformin HCl (Metformin Hcl 500 Mg Tablet) 500 mg PO DAILY [facility] Last Admin: 06/26/23 08:38 Dose: 500 mg Olanzapine (Olanzapine 10 Mg Tablet) 10 mg PO BEDTIME [facility] Last Admin: 06/25/23 21:04 Dose: 10 mg Trazodone HCl (Trazodone Hcl 50 Mg Tablet) 50 mg PO BEDTIME [facility] Last Admin: 06/25/23 21:04 Dose: 50 mg Allergies Allergies Allergy/AdvReac Type Severity Reaction Status Date / Time No Known Allergies Allergy Verified 06/15/23 23:31 Assessment & Plan Assessment & Plan (1) Bipolar disorder with psychotic features: Status: Acute Code(s): F31.9 - Bipolar disorder, unspecified Plan 48 yo female, hx of bipolar disorder with psychosis, admitted after an argument with partner where pt expressed HI, SI. Plan: Re-establish meds: Prozac 20 mg daily Zyprexa 10 mg HS Hydroxyzine 25 mg tid prn Trazodone 50 mg hs Metformin 500 mg am. 06/17/23 Continue current regime. Continue to monitor for symptoms. 06/18: used [employer]. 7th grade social studies teacher ([employer]) present. Pt reports feeling okay today; pt stated, I don't need anything. I haven't felt suicidal in a few days . calm, cooperative. denies SI/HI/VH/AH. continue current tx plan. 06/19/23: Continue current regimen and plans 06/20/2023: Continue current regimen and plans 06/21/23: Continue current regime and plan of care. 06/23/23 Continue tx 06/24 technical writer and editor attended a family meeting with pt, her daughter, (virtually present) and his other partner. Discussed how to make the complex relationships; discussed how patient will navigate her own stress... -will leave meds as they are since pt only takes intermittently and thus maybe therapeutic at current doses -pt not sure why on zyprexa, but will leave for now 06/25 patient reports she is good and has a noticeably brighter affect; patient in the milieu, attending groups, sitting with peers. Social work working on setting up aftercare including VNA. Plan is for her to discharge early next week 06/26 calm, good mood, brighter affect, tolerating medication. Looking forward to discharge soon Patient educated on: diagnosis and medication risk/benefits Informed Consent: understands Reason for continued inpatient stay Substantial Risk for: stable for discharge Time Spent With Patient Time: Total time managing care of this patient today ____ minutes.
[2023-06-26 20:50] VITALS: BP 115/70; PULSE 98; TEMP 36.1
[2023-06-26] MEDS: OLANZapine 10 MG TABLET PO (20:50)
[2023-06-26] MEDS: traZODone HCL 50 MG TABLET PO (20:50)
[2023-06-27] MEDS: metFORMIN HCl 500 MG TABLET PO (08:30)
[2023-06-27] MEDS: FLUoxetine HCl 20 MG CAPSULE PO (08:30)
[2023-06-27 08:40] VITALS: BP 114/75; PULSE 76; RESP 16; TEMP 36.1; O2SAT 97
--- NOTE | 2023-06-27 12:37 | HO.PSYCHPN ---
Subjective Subjective Date of Service: 06/27/23 Reason For Visit: Crisis Interim History: pt seen with director facilities maintenance; discussed with team pt remains pleasant, calm, in good behavioral and impulse control...around others. Pt says everything is good. She says she is in good mood, and no depression/anxiety/SI/HI or AVH. She reports eating and sleeping well. She feels ready to go home tomorrow. She has no questions for lead technical writer and no complaints. Mental Status Exam Mental Status Exam Patient Appearance: Appropriate Patient Orientation: Person, Place and Situation Level of Consciousness: Alert Patient Behavior: Appropriate and Good Eye Contact Mood Description: Calm ( everything is good ) Affect Description: Calm and Appropriate Patient Cognition Impaired: No Ability to Follow Directions: Fair Speech Pattern: Spontaneous Speech Memory Description: Episodic Impaired Hallucinations: None Delusions: Not Present Thought Process: Intact and Goal Oriented Thought Content: positive for Intact (No SI/HI) Depressive Symptoms: Low Self Esteem Judgement: Fair Diagnostics Vital Signs (24Hr): Vital Signs - 24 hr 06/26/23 20:50 06/27/23 08:40 Temperature 96.9 F 96.9 F Pulse Rate 98 76 Respiratory Rate 16 Blood Pressure 115/70 114/75 Pulse Oximetry 97 Oxygen Delivery Method Room Air BMI result Body Mass Index 40.0 Labs 06/23/23 10:14 Medications Medications Current Medications Acetaminophen (Acetaminophen 325 Mg Tablet) 650 mg PO Q6H PRN PRN Reason: Headache/Pain Mild Scale (1-3) Al Hydroxide/Mg Hydroxide (Magnesium Hydrox/Alum Hydrox 30 Ml Oral.Susp) 30 ml PO Q6H PRN PRN Reason: Heartburn/Nausea Fluoxetine HCl (Fluoxetine Hcl 20 Mg Capsule) 20 mg PO DAILY [facility] Last Admin: 06/27/23 08:30 Dose: 20 mg Hydroxyzine HCl (Hydroxyzine Hcl 25 Mg Tablet) 25 mg PO Q8H PRN PRN Reason: Anxiety Last Admin: 06/24/23 19:46 Dose: 25 mg Magnesium Hydroxide (Milk Of Magnesia 30 Ml Oral.Susp) 30 ml PO DAILY PRN PRN Reason: Constipation Metformin HCl (Metformin Hcl 500 Mg Tablet) 500 mg PO DAILY [facility] Last Admin: 06/27/23 08:30 Dose: 500 mg Olanzapine (Olanzapine 10 Mg Tablet) 10 mg PO BEDTIME [facility] Last Admin: 06/26/23 20:50 Dose: 10 mg Trazodone HCl (Trazodone Hcl 50 Mg Tablet) 50 mg PO BEDTIME [facility] Last Admin: 06/26/23 20:50 Dose: 50 mg Allergies Allergies Allergy/AdvReac Type Severity Reaction Status Date / Time No Known Allergies Allergy Verified 06/15/23 23:31 Assessment & Plan Assessment & Plan (1) Bipolar disorder with psychotic features: Status: Acute Code(s): F31.9 - Bipolar disorder, unspecified Plan 48 yo female, hx of bipolar disorder with psychosis, admitted after an argument with partner where pt expressed HI, SI. Plan: Re-establish meds: Prozac 20 mg daily Zyprexa 10 mg HS Hydroxyzine 25 mg tid prn Trazodone 50 mg hs Metformin 500 mg am. 06/17/23 Continue current regime. Continue to monitor for symptoms. 06/18: used director facilities maintenance services. social worker health services ([employer]) present. Pt reports feeling okay today; pt stated, I don't need anything. I haven't felt suicidal in a few days . calm, cooperative. denies SI/HI/VH/AH. continue current tx plan. 06/19/23: Continue current regimen and plans 06/20/2023: Continue current regimen and plans 06/21/23: Continue current regime and plan of care. 06/23/23 Continue tx 06/24 lead technical writer attended a family meeting with pt, her daughter, (virtually present) and his other partner. Discussed how to make the complex relationships; discussed how patient will navigate her own stress... -will leave meds as they are since pt only takes intermittently and thus maybe therapeutic at current doses -pt not sure why on zyprexa, but will leave for now 06/25 patient reports she is good and has a noticeably brighter affect; patient in the milieu, attending groups, sitting with peers. Social work working on setting up aftercare including VNA. Plan is for her to discharge early next week 06/26 calm, good mood, brighter affect, tolerating medication. Looking forward to discharge soon 06/27 pt remains pleasant, calm, in good behavioral and impulse control...around others. Pt says everything is good. She says she is in good mood, and no depression/anxiety/SI/HI or AVH. She reports eating and sleeping well. She feels ready to go home tomorrow. She has no questions for lead technical writer and no complaints. Patient educated on: diagnosis and medication risk/benefits Reason for continued inpatient stay Substantial Risk for: stable for discharge Time Spent With Patient Time: Total time managing care of this patient today ____ minutes.
[2023-06-27 18:00] VITALS: BP 120/68; PULSE 88; RESP 17; TEMP 36.2; O2SAT 98
[2023-06-28 06:00] VITALS: BP 147/82; PULSE 82; RESP 16; TEMP 36.1; O2SAT 97
[2023-06-28] MEDS: metFORMIN HCl 500 MG TABLET PO (08:04)
[2023-06-28] MEDS: FLUoxetine HCl 20 MG CAPSULE PO (08:04)
--- NOTE | 2023-06-28 10:18 | P.DS_ITS ---
DS: Providers Provider Date of Service: 06/28/23 Date of admission: 06/15/23 20:49 Date of discharge: 06/28/23 Primary care physician: None Physician Admitting clinician: Jacque Kerns Attending physician on admission: Victoriano De Jesus Consults: 06/15/23 23:31 Consult to Hospitalist Routine Comment: Consulting Provider: Hospitalist Reason For Exam: medical H&P Attending physician on discharge: Victoriano De Jesus Discharging clinician: Jacque Kerns DS: Diagnosis Discharge Diagnosis (1) Bipolar disorder with psychotic features: Status: Acute Mental Status Exam Mental Status Exam Patient Appearance: Appropriate Patient Orientation: Person, Place and Situation Level of Consciousness: Alert Patient Behavior: Appropriate and Good Eye Contact Mood Description: Calm ( everything is good ) Affect Description: Calm and Appropriate Patient Cognition Impaired: No Ability to Follow Directions: Fair Speech Pattern: Spontaneous Speech Memory Description: Episodic Impaired Hallucinations: None Delusions: Not Present Thought Process: Intact and Goal Oriented Thought Content: positive for Intact (No SI/HI) Depressive Symptoms: Low Self Esteem Judgement: Fair Data Data Completed and Pending Completed studies during hospitalization [Text1]: 06/23/23 10:14 Creatinine 0.83 Estim Creat Clear Calc 85.2 Estimated GFR > 60 DS: Summary Hospital Course Hospital Course: Admission to adult psychiatry in transfer from [facility] for exacerbation of symptoms of bipolar disorder with psychosis. Pt is Arnaldo and required enterprise application developer for her admission. Reports an argument with her partner and his girlfriend prior to admission over food and feeling disrespected. Self harm, suicidal and homicidal threats were reported. Pt's medicine regime was evaluated and continued. There were no symptoms of behavioral dyscontrol in the milieu. Pt discussed her concerns about not being equally treated in her relationship, not heard. She reports she has no issue with partner having a girlfriend but would just like to be treated as an equal in the relationship. She consistently denied SI/HI, citing these actions begin against her jewish beliefs. Reports her symptoms of depression are well managed by her out patient team with [facility]. Pt did well in the milieu and will return home t o family and to her out patient care team. She will return home on Fluoxetine 20 mg daily, Olanzapine 20 mg daily, Metformin 500 mg daily. Status at Discharge Functional status at discharge: independent ambulation Overall status at discharge: patient is back to baseline Time Spent with Patient Time attestation: Total time managing care of this patient today ____ minutes. Time spent: Greater than 30 minutes Discharge Plan Discharge Anticipated Discharge Date/Time: 06/28/23 12:00 Patient Disposition: Home, Self-Care Discharge Diagnosis: Bipolar Disorder with Psychosis Referrals: [facility] [Other] - 06/29/23 (fax- [phone] Visiting RN will call to set a time for 1st visit. Expect a visit on 06/29/23 ) [facility] Therapy w Roldan Cuello [Other] - 07/01/23 9:30 am (Telehealth) [facility] Primary Care w Sarika Collins [Other] - 07/30/23 9:00 am () [facility] Psychiatry [Other] - 07/28/23 11:00 am [facility] [Provider Group] - 1 Week (Walk-In Clinic) Discharge Orders: Discharge Order (Routine); Ordered 06/28/23 Ordered By: Jacque Kerns Diet: Advance to usual diet Activity on Discharge: As tolerated Stand Alone Forms: Patient Portal Discharge page, Community Support Care Plan Goals: Mood and Behavioral Stabilization Health Concerns: Mood and Behavioral Stabilization Plan of Treatment: Attend scheduled appointments Take medications as directed Scheduled discharge Assessment: Scheduled discharge Discharge Date/Time: 06/28/23 10:25
== END 2023-06-28 10:25 | disposition home or self-care (01) | DRG 753 ==
PROVIDERS: Social Worker; Admitting Provider Psychiatry & Neurology Psychiatry; Visit Provider Clinical Nurse Specialist Psychiatric/Mental Health, Adult
DX: F31.9 Bipolar disorder, unspecified (principal); R45.851 Suicidal ideations; F29 Unspecified psychosis not due to a substance or known physiological condition; R45.850 Homicidal ideations; E11.9 Type 2 diabetes mellitus without complications; G89.29 Other chronic pain
CPT/HCPCS: 36415; 80053; 80061; 82565; 82607; 83036; 84443

== ENCOUNTER → 2023-06-15 20:49 | Outpatient (BNV) | payer MEDICAID, SELFPAY | PROVIDERS: Admitting Provider Psychiatry & Neurology Psychiatry; Visit Provider Student in an Organized Health Care Education/Training Program | DX: Z00.8 Encounter for other general examination (principal) | CPT/HCPCS: 99222 ==

== ENCOUNTER → 2023-06-15 20:49 | Outpatient (BNV) | payer OTHER, SELFPAY | PROVIDERS: Admitting Provider Psychiatry & Neurology Psychiatry; Visit Provider Clinical Nurse Specialist Psychiatric/Mental Health, Adult | DX: F31.4 Bipolar disorder, current episode depressed, severe, without psychotic features (principal) | CPT/HCPCS: 99231; 99232 ==